=== PATIENT | female | born 1965 | race Caucasian/White ===

== ENCOUNTER 2016-11-07 10:39 | Emergency (ER) | payer OTHER ==
[~2016-11-07] VITALS: Ht 157.5 cm; Wt 65.8 kg
[~2016-11-07 10:39] MED LIST: ALBUTEROL0.09 MG/A1 INH; AMITRIPTYLINE H50 M2 PO; AMITRIPTYLINE50 MG; CYCLOBENZAPRINE5 M2 PO; ESTRACE 1MG TABL1 MG PO; LEVOTHYROXIN0.112 MG PO; LEVOTHYROXIN0.137 MG; LEVOTHYROXIN0.137 MG PO; LEVOTHYROXINE125 MCG PO; LEVOTHYROXINE137 MCG PO; MELOXICAM7.5 MG; PERCOCET 325 MG1 TA2 PO; REGLAN10 M1 PO; VALACYCLOVIR500 MG; ZOFRAN ODT4 M1 SL; ZOFRAN ODT4 MG PO; ZOFRAN4 M1 PO
--- NOTE | 2016-11-07 10:47 | ED GENERAL ADULT ---
History of Present Illness General Chief Complaint: Neck/Upper Back Pain/Injury Stated Complaint: EPIDURAL X 1WK AGO/ HEAD NECK BACK PAIN Source: patient, old records Exam Limitations: no limitations Vital Signs & Intake/Output Vital Signs & Intake/Output Vital Signs Date Time Temp Pulse Resp B/P Pulse O2 O2 Flow FiO2 Ox Delivery Rate 11/07 1303 98.3 11/07 1045 98.3 86 18 128/81 100 Room Air Allergies Coded Allergies: doxycycline (Severe, BLISTERS ON ROOF OF MOUTH 05/19/16) Reconcile Medications Albuterol Sulfate (Albuterol Sulfate Hfa) 0.09 MG/Actuation AZAR 2 PUFF INH PRN SHORTNESS OF BREATH (Reported) 90 MCG PER PUFF Estradiol (Estrace 1MG Tablet) 1 MG TAB 1 TAB PO DAILY HRT (Reported) Hydrocodone/Acetaminophen (Vicodin 5-300 MG Tablet) 5 MG-300 MG TABLET 1 TAB PO Q6 PRN pain Levothyroxine Sodium 137 MCG TABLET 1 TAB PO EOD THYROID HEALTH (Reported) Levothyroxine Sodium 125 MCG TABLET 1 TAB PO EOD THYROID HEALTH (Reported) Ondansetron (Zofran Odt) 4 MG TAB.RAPDIS 1 TAB SL TID PRN nausea Triage Note: 51 Y/O FEMALE STATES SHE HAD A SPINAL EPIDURAL ON 10/29/16 AND HAS BEEN HAVING WORSENING NECK PAIN SINCE. PAIN RADIATING INTO SHOULDERS AND DOWN SPINE. PT TOOK 3 TABS IBUPROPHEN THIS AM (ABOUT 1 HOUR AGO PER PT). PT ALSO REPORTS SUBJECTIVE FEVERS. DR HUITRON (PAIN MANAGEMENT) CALLED AND SPOKE WITH DR HERNANDES: CONCERN FOR INFECTION/ABCESS. REQUESTING CBC, CMP, SED RATE, CRP, AND MRI WITH AND WITHOUT CONTRAST (CERVICAL SPINE). Triage Nurses Notes Reviewed? yes HPI: Patient is a 51 year old female presents complaining of severe neck pain. Pain is a sharp pain 10/10, radiates to the right posterior thoracic area. Pain severe x 2 days. Pain worsens with cough, laughing, deep breath. Chills onset yesterday. Subjective fevers this morning, took 600mg of Ibuprofen at 0830 with minimal improvement. Patient had an epidural to her cervical spine on 10/29/[address] Huitron. Associated headache. Denies any other recent trauma or injury, extremity numbness, extremity weakness. (ABRAHAM SPRING) Past History Travel History Traveled to [place] past 21 day No Medical History Any Pertinent Medical History? see below for history Neurological: NONE EENT: NONE Cardiovascular: NONE Respiratory: NONE Gastrointestinal: NONE Hepatic: NONE Renal: NONE Musculoskeletal: fibromyalgia, chronic neck pain Psychiatric: NONE Endocrine: hypothyroidism Blood Disorders: NONE Cancer(s): NONE BUSINESS SERVICES COORDINATOR/Reproductive: NONE Surgical History Surgical History: hysterectomy, sinus surgery Tonsillectomy Left knee staple placement Psychosocial History What is your primary language Bulgarian Tobacco Use: Quit >30 days ago Family History Family History, If Any: MOTHER FATHER, . BROTHER Relation not specified for: FH: breast cancer FH: lung cancer FH: lung cancer Hx Contributory? No (ABRAHAM SPRING) Review of Systems Review of Systems Constitutional: Reports: chills, fever. EENTM: Reports: no symptoms. Respiratory: Denies: short of breath. Cardiovascular: Denies: chest pain, syncope. GI: Denies: abdominal pain, nausea, vomiting. Musculoskeletal: Reports: see HPI, back pain, neck pain. Skin: Denies: rash. Neurological/Psychological: Reports: headache. Denies: numbness, unable to move lower ext, unable to move upper ext. Hematologic/Endocrine: Denies: bruising, bleeding. Immunologic/Allergic: Denies: splenectomy. (ABRAHAM SPRING) Physical Exam Physical Exam General Appearance: well developed/nourished, alert, awake Head: atraumatic, normal appearance Eyes: Bilateral: normal appearance, PERRL, EOMI. Ears, Nose, Throat: normal pharynx, normal ENT inspection, hearing grossly normal Neck: midline cervical tenderness in the area of c6/c7. No erythema or induration Respiratory: normal breath sounds, no respiratory distress, lungs clear Cardiovascular: regular rate/rhythm (no appreciable murmur) Peripheral Pulses: 2+ radial (R), 2+ radial (L) Back: normal inspection, normal range of motion, no vertebral tenderness Extremities: normal inspection, normal capillary refill, normal range of motion Neurologic/Psych: no motor/sensory deficits, awake, alert, oriented x 3, normal gait, normal mood/affect Skin: intact, normal color, warm/dry Lymphatic: no anterior cervical esvin Core Measures ACS in differential dx? Yes CVA/TIA Diagnosis: No Severe Sepsis Present: No Septic Shock Present: No (ABRAHAM SPRING) Progress Differential Diagnoses I considered the following diagnoses in my evaluation of the patient: Herniated disc, epidural abscess, hematoma, aortic dissection, carotid dissection Plan of Care: Orders Procedure Date/time Status WESTERGREN SED RATE 11/07 UNK Complete C-REACTIVE PROTEIN 11/07 1046 Complete COMPREHENSIVE METABOLIC PANEL 11/07 1046 Complete CBC WITHOUT DIFFERENTIAL 11/07 1046 Complete Laboratory Tests 11/07/16 1110: ESR Westergren 12 11/07/16 1104: Anion Gap 9, Estimated GFR > 60, BUN/Creatinine Ratio 25.0, Glucose 108 H, Calcium 9.4, Total Bilirubin 0.5, AST 21, ALT 30, Alkaline Phosphatase 124, C- Reactive Prot, Quant 0.6, Total Protein 6.9, Albumin 4.0, Globulin 2.9, Albumin/ Globulin Ratio 1.4, CBC w Diff NO MAN DIFF REQ, RBC 4.51, MCV 86.3, MCH 29.4, RDW 13.0, MPV 8.7, Gran % 66.6, Lymphocytes % 22.4, Monocytes % 7.1, Eosinophils % 3.1, Basophils % 0.8, Absolute Granulocytes 4.7, Absolute Lymphocytes 1.6, Absolute Monocytes 0.5, Absolute Eosinophils 0.2, Absolute Basophils 0.1, PUBS MCHC 34.1 Dr. Hernandes received call ahead from Dr. Huitron requesting CBC, CRP, ESR and MRI of c-spine with and without contrast to rule out epidural abscess 1250: Results of labs discussed with patient. Patient currently nauseous( patient reports she frequently gets nauseous from pain medication), reports intermittent upper abdominal spasms and continues with severe neck pain. No peritoneal signs on abdominal exam. Additional pain medication ordered. 1315: Discussed with Dr. Huitron: can discharge patient on Vicodin, and will call patient on Thursday for follow up. 1340: Patient reports feeling moderate improvement. Eating food without difficulty Discussed results of labs and MRI. No focal neurologic abnormalities. Appears stable for discharge with outpatient follow up. (ABRAHAM SPRING) Diagnostic Imaging: Discussed w/RAD: MRI. Radiology Impression: PATIENT: ADELFO LANIER PRESENT AGE: 51 PATIENT ACCOUNT NO: [id number] : 64 LOCATION: [facility] ORDERING PHYSICIAN: ABRAHAM LAYNE SERVICE DATE: 11/07/169 EXAM TYPE: MRI - MRI-CERVICAL W & W/O CHAPARRITA EXAMINATION: MR CERVICAL SPINE WITHOUT AND WITH CONTRAST CLINICAL INFORMATION: History of cervical epidural on October 29 now with pain. COMPARISON: Cervical spine radiographs 10/15/2016. Cervical spine MRI from 08/13/2016. TECHNIQUE: MRI of the cervical spine without and with contrast was obtained using routine sequences. Intravenous contrast: OptiMARK 13 mL. FINDINGS: Reversal of the cervical lordosis is unchanged. Vertebral body heights are maintained. Disc volumes are preserved. There is no bone marrow edema. There are no acute fractures. Craniocervical junction is normal. There is no pathologic intrathecal enhancement. There are no epidural collections. There are no significant soft tissue findings. The cervical arterial flow voids are maintained. No soft tissue hematomas. C2-C3: Disc contour remains normal. Mild bilateral facet arthropathy. No central canal stenosis and no foraminal stenosis. C3-C4: Stable appearing small central disc protrusion that minimally flattens the ventral cord without resulting in central canal stenosis. No foraminal stenosis. C4-C5: Stable appearing small shallow posterior right central/right foraminal disc protrusion that mildly indents the right ventral thecal sac and results in mild to moderate narrowing of the right neural foramen. No central canal stenosis and no left foraminal stenosis. C5-C6: Disc contour normal. Mild left-sided facet arthropathy. No central canal stenosis and no foraminal stenosis. C6-C7: Disc contour normal. No central canal stenosis and no foraminal stenosis. C7-T1: Disc contour normal. No central canal stenosis and no foraminal stenosis. IMPRESSION: - Stable MR appearance of the cervical spine. There are no acute findings. No epidural collections, no pathologic enhancement, no cord compression, and no hematomas. - Stable appearing small disc protrusions at the C3-C4 and C4-C5 levels. The disc protrusion results in stable mild to moderate right foraminal narrowing at C4-C5. Previously seen small disc protrusions at C5-C6 and C6-C7 are not well appreciated on this study which is partially degraded by motion artifact. DICTATED BY: HUMERA RUIZ MD DATE/TIME DICTATED:11/07/161252 [employer] ST[employer] CLERK:SOL DATE/TIME TRANSCRIBED:1252 CONFIDENTIAL, DO NOT COPY WITHOUT APPROPRIATE AUTHORIZATION. < Electronically signed in Other Vendor System> SIGNED BY: HUMERA RUIZ MD 11/07/16 1308 Initial ED EKG: none (ABRAHAM SPRING) Departure Departure Time of Disposition: 2 Disposition: HOME OR SELF CARE Condition: Stable Clinical Impression Primary Impression: Neck pain Referrals: MARISA BARFIELD,ZAINAB (PCP/Family) Additional Instructions: Follow up with Dr. Huitron next week for further evaluation. Return to the ER if temperature above 100.3, numbness, increasing weakness, pain uncontrollable or worsening of symptoms. Departure Forms: Customer Survey General Discharge Information Prescriptions: Current Visit Scripts Hydrocodone/Acetaminophen (Vicodin 5-300 MG Tablet) 1 TAB PO Q6 PRN pain #10 TAB Ondansetron (Zofran Odt) 1 TAB SL TID PRN nausea #10 TAB (ABRAHAM SPRING) PA/EDUCATIONAL ASSISTANT Co-Sign Statement Statement: ED Attending supervision documentation- [] I saw and evaluated the patient. I have also reviewed all the pertinent lab results and diagnostic results. I agree with the findings and the plan of care as documented in the PA's/EDUCATIONAL ASSISTANT's documentation. [X] I have reviewed the ED Record and agree with the PA's/EDUCATIONAL ASSISTANT's documentation. [] Additions or exceptions (if any) to the PAs/EDUCATIONAL ASSISTANT's note and plan are summarized below: [] (EDMUNDO BARFIELD,DANIEL) Critical Care Note Critical Care Note Critical Care Time: non-applicable (ABRAHAM SPRING)
[2016-11-07 11:15] LABS: ABSOLUTE BASOPHIL COUNT 0.1 /CUMM (0.0-0.2); ABSOLUTE EOSINOPHIL COUNT 0.2 /CUMM (0.0-0.7); ABSOLUTE GRANULOCYTE CT 4.7 /CUMM (1.4-6.5); ABSOLUTE LYMPH COUNT 1.6 /CUMM (1.2-3.4); ABSOLUTE MONOCYTE COUNT 0.5 /CUMM (0.10-0.60); BASOPHIL % 0.8 % (0.0-2.0); EOSINOPHIL % 3.1 % (0-5); GRANULOCYTE % 66.6 % (42.2-75.2); HEMATOCRIT 38.9 % (37-47); MEAN CORPUSCULAR HGB 29.4 PG (27.0-31.0); MEAN CORPUSCULAR HGB CONC 34.1 G/DL (33.0-37.0); MEAN CORPUSCULAR VOLUME 86.3 FL (81.0-99.0); MEAN PLATELET VOLUME 8.7 FL (7.4-10.4); PLATELET COUNT 302 /CUMM (130-400); RED BLOOD CELL CT 4.51 /CUMM (4.20-5.40)
--- NOTE | 2016-11-07 13:08 | MRI REPORT ---
EXAMINATION: MR CERVICAL SPINE WITHOUT AND WITH CONTRAST CLINICAL INFORMATION: History of cervical epidural on October 29 now with pain. COMPARISON: Cervical spine radiographs 10/15/2016. Cervical spine MRI from 08/13/2016. TECHNIQUE: MRI of the cervical spine without and with contrast was obtained using routine sequences. Intravenous contrast: OptiMARK 13 mL. FINDINGS: Reversal of the cervical lordosis is unchanged. Vertebral body heights are maintained. Disc volumes are preserved. There is no bone marrow edema. There are no acute fractures. Craniocervical junction is normal. There is no pathologic intrathecal enhancement. There are no epidural collections. There are no significant soft tissue findings. The cervical arterial flow voids are maintained. No soft tissue hematomas. C2-C3: Disc contour remains normal. Mild bilateral facet arthropathy. No central canal stenosis and no foraminal stenosis. C3-C4: Stable appearing small central disc protrusion that minimally flattens the ventral cord without resulting in central canal stenosis. No foraminal stenosis. C4-C5: Stable appearing small shallow posterior right central/right foraminal disc protrusion that mildly indents the right ventral thecal sac and results in mild to moderate narrowing of the right neural foramen. No central canal stenosis and no left foraminal stenosis. C5-C6: Disc contour normal. Mild left-sided facet arthropathy. No central canal stenosis and no foraminal stenosis. C6-C7: Disc contour normal. No central canal stenosis and no foraminal stenosis. C7-T1: Disc contour normal. No central canal stenosis and no foraminal stenosis. IMPRESSION: - Stable MR appearance of the cervical spine. There are no acute findings. No epidural collections, no pathologic enhancement, no cord compression, and no hematomas. - Stable appearing small disc protrusions at the C3-C4 and C4-C5 levels. The disc protrusion results in stable mild to moderate right foraminal narrowing at C4-C5. Previously seen small disc protrusions at C5-C6 and C6-C7 are not well appreciated on this study which is partially degraded by motion artifact.
[2016-11-07] MEDS ORDERED: ZOFRAN ODT4 M1 SL (13:44)
[2016-11-07] MEDS ORDERED: VICODIN 5-3001 EACH PO (13:44)
[2016-11-07 14:31] VITALS: BP 117/65
== END 2016-11-07 14:34 ==
LOC: ERH 10:39
PROVIDERS: Physician Assistant
DX: M54.2 Cervicalgia (principal)
CPT/HCPCS: 72142; 72156; 96365; 96375; A9579; J0131; J1885; J2405; J2550